=== PATIENT | male | born 1955 | race Caucasian/White ===

== ENCOUNTER 2018-03-11 13:47 | Observation (INO) | payer BC ==
[~2018-03-11] VITALS: Ht 172.7 cm; Wt 115.3 kg
[2018-03-11] MEDS ORDERED: ALBU2.5V8 INH (14:19)
[2018-03-11] MEDS ORDERED: LOSA100T14 PO (14:19)
[2018-03-11] MEDS ORDERED: CYCL10TA2 PO (14:19)
[2018-03-11] MEDS ORDERED: PRAV80TA2 PO (14:19)
[2018-03-11] MEDS ORDERED: CARB100O7 PO (14:19)
[2018-03-11] MEDS ORDERED: FAMO40TA4 PO (14:19)
[2018-03-11] MEDS ORDERED: HYDR-2761 PO (14:19)
[2018-03-11] MEDS ORDERED: IV RINGERS,LACTATED 1000ML 1,000 ML IV SCH (14:42)
--- NOTE | 2018-03-11 14:43 | EKG ---
[facility] [address] [place] [address] Test Date: 2018-03-11 Test Time: 14:51:27 Pat Name: ISABEL LYNNE Department: Room: Gender: M Nuclear Medicine Technician: TIO : 1955 Requested By: MELLO CALDWELL Order Number: [id number] Reading MD: Jose M Thomason MD Measurements Intervals [place] Rate: 66 P: 38 IN: 172 QRS: -15 QRSD: 90 T: 37 QT: 388 QTc: 408 Interpretive Statements SINUS RHYTHM CONSIDER PRIOR SEPTAL INFARCT Electronically Signed On 03-15-2018 8:37:48 ANALYTICAL DATA SCIENTIST by Jose M Thomason MD
[2018-03-11] MEDS ORDERED: MIDAZOLAM HCL/PF 2 MG/2 ML VIAL. IV PRN (14:45)
[2018-03-11] MEDS ORDERED: LIDOCAINE 1% PF 2 ML VIAL. ID PRN (14:45)
[2018-03-11] MEDS ORDERED: fentaNYL PF VIAL 100 MCG/2 ML VIAL IV PRN ×2 (14:45)
[2018-03-11] MEDS ORDERED: PROPOFOL 40 ML IV ONE (14:59)
[2018-03-11 15:18] LABS: CALCIUM 8.9 mg/dL (8.5-10.1); CREATININE 1.1 mg/dL (0.7-1.3); GFR 68.1; POTASSIUM 4.8 mmol/L (3.5-5.1)
[2018-03-11] MEDS ORDERED: PROPOFOL 60 ML IV ONE (15:25)
--- NOTE | 2018-03-11 16:03 | PDOC2 ---
CARDIAC CONSULT DATE OF CONSULT Date of Consult DATE: 03/11/18 TIME: 15:49 REASON FOR CONSULT Reason for Consult: Chest pain REFERRING PHYSICIAN Referring Physician: Ben SOURCE Source: Chart review, Patient HISTORY OF PRESENT ILLNESS HISTORY OF PRESENT ILLNESS This is a pleasant 62 yo male admitted for planned colonoscopy and EGD. Pt reports that he has been having RUQ pain and hx of abdominal abscess and needing GI screening. He successfully finished his bowel prep overnight without difficulty. This morning he did have a brief moment of mid chest pressure lasting about <2minutes with no recurrence. He does have hx of CAD with x1 stent placed in 2009 and sees [facility] formula clerk whom he could not remember the name but saw him 12/2016. 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 There has been no changes to his activity tolerance and denies any jaw or arm pain. Aside from his nausea associated with his bowel prep there has been no issues with vomiting , palpitations, dizzy spells, or any episodes of unexplained diaphoresis. He has not been having any chest pain prior to this morning event which was not associated with any other symptoms. PAST MEDICAL HISTORY Cardiovascular: CAD, HTN, Hyperlipidemia CENTRAL NERVOUS SYSTEM: Seizure Heme/Onc: Cancer (right renal CA; CLL) PAST SURGICAL HISTORY Past Surgical History: Cholecystectomy, Hernia Repair, Other (lower back surgery; right nephrectomy; PCI/stent x1 in 2009) FAMILY HISTORY Family History noncontributory to CV Family History: Diabetes (mother/sister) SOCIAL HISTORY Smoke: No ALCOHOL: none Drugs: None Lives: Alone CURRENT MEDICATIONS CURRENT MEDICATIONS Current Medications Medications (Trade) Dose Ordered Sig/Brook Route PRN Reason Start Time Stop Time Status Last Admin Dose Admin Ringer's Solution 1,000 ml @ 125 mls/hr Q8H IV 03/11/18 14:42 03/12/18 02:41 03/11/18 14:45 ALLERGIES ALLERGIES: Coded Allergies: No Known Drug Allergies (Unverified , 03/11/18) ROS Review of System 14 point ROS evaluated with pertinent positives noted per HPI PHYSICAL EXAM General: Alert, Oriented X3, Cooperative, No acute distress HEENT: Atraumatic, Mucous membr. moist/pink Lungs: Clear to auscultation, Normal air movement Heart: Regular rate (SR), Normal S1, Normal S2, No murmurs Abdomen: Soft, No tenderness, Other (truncal obesity with mild ventral hernia) Extremities: No cyanosis, No edema Skin: No breakdown, No significant lesion Neuro: Normal speech, Sensation intact Psych/Mental Status: Mental status NL, Mood NL MUSCULOSKELETAL: Osteoarthritic changes both hands VITALS VITALS Vital Signs Date Time Temp Pulse Resp B/P (MAP) Pulse Ox O2 Delivery O2 Flow Rate FiO2 03/11/18 14:29 97.9 74 20 95 97.9 LABS Lab: Laboratory Tests Test 03/11/18 14:45 Sodium Level 137 mmol/L (136-145) Potassium Level 4.8 mmol/L (3.5-5.1) Chloride Level 103 mmol/L (98-107) Carbon Dioxide Level 20 mmol/L (21-32) Anion Gap 14 (6-14) Blood Urea Nitrogen 13 mg/dL (8-26) Creatinine 1.1 mg/dL (0.7-1.3) Estimated GFR (Cockcroft-Gault) 68.1 Glucose Level 73 mg/dL (70-99) Calcium Level 8.9 mg/dL (8.5-10.1) Troponin I Quantitative 0.050 ng/mL (0.000-0.055) ASSESSMENT/PLAN ASSESSMENT/PLAN 1. Atypical CP: noncardiac, suspect GI with post bowel prep. Trop nml. EKG SR without acute changes with good functional capacity 2. CAD: PCI/stent in 2009, clinically stable. 3. HTN: mildly elevated as he has not taken his cozar this am due to being NPO 4. HLP Recommendations 1. Resume home cardiac meds including ASA/losartan once PO is tolerated pending EGD and colonoscopy today 2. Advised pt to follow up with outpt formula clerk at [facility] once discharged. ODALIS FERNANDEZ APRN Mar 11, 2018 16:03
[2018-03-11] MEDS ORDERED: PROPOFOL 80 ML IV ONE (16:10)
[2018-03-11] MEDS ORDERED: CARB200T PO ×2 (18:18)
[2018-03-11] MEDS ORDERED: HYDROcodone/APAP 5/325MG 1 TAB TABLET PO PRN (18:45)
[2018-03-11] MEDS ORDERED: ALBUTEROL SULFATE 2.5 MG/3 ML NEBU. NEB PRN (18:45)
[2018-03-11] MEDS ORDERED: NON FORMULARY ITEM (Albuterol Sulfate (Proair Hfa Inhaler) 1 PUFF) INH PRN (18:45)
[2018-03-11 18:52] VITALS: BP 158/69
[2018-03-11] MEDS ORDERED: ATORVASTATIN CALCIUM 20 MG TABLET PO SCH (21:00)
[2018-03-11] MEDS ORDERED: carBAMazepine 200 MG TABLET PO SCH (21:00)
[2018-03-11] MEDS: FAMOTIDINE 20 MG TABLET. PO SCH (21:14)
[2018-03-11] MEDS: CYCLOBENZAPRINE 10 MG TABLET. PO SCH (21:15)
[2018-03-11] MEDS ORDERED: ASPI-630 PO (21:19)
[2018-03-11] MEDS ORDERED: PSYL1CAP4 PO (21:22)
[2018-03-11 22:00] VITALS: BP 129/58
[2018-03-11] MEDS ORDERED: PSYLLIUM HUSK (SUGAR FREE) 1 PKT PACKET PO PRN (22:00)
--- NOTE | 2018-03-11 23:23 | HP ---
ADMIT DATE: 03/11/2018 CHIEF COMPLAINT: Chest pain. HISTORY OF PRESENT ILLNESS: The patient is a pleasant middle-aged white male who presented with chest pain. He apparently was getting an EGD and colonoscopy that was planned as an outpatient, but then they sent him to the hospital to go to do it close by the hospital is what he said. Afterwards, he has been having some chest pain, rates it at 6/10 with some associated nausea. It has been coming on for a couple of days, but it got worse today. He does have a history of coronary artery disease with 1 previous stent with 1 previous stent states that moving makes it worse and still makes it better. Describes as agonizing. I discussed the case with the gastrointestinal specialist's nurse. They want to go ahead and transfer the patient to me in admitting and I am fine with that. We admitted him. 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 PAST MEDICAL HISTORY: Coronary artery disease, hypertension, hyperlipidemia, renal cell carcinoma, seizures, cholecystectomy, hernia repair, low back surgery, right nephrectomy, cardiac stents. ALLERGIES: None. FAMILY HISTORY: Coronary artery disease. SOCIAL HISTORY: He does not drink, smoke or take drugs. MEDICATIONS: Reviewed, please refer to the MRAD. He is on aspirin and statin and [id number] meds. REVIEW OF SYSTEMS: GENERAL: No history of weight change, weakness or fevers. SKIN: No bruising, hair changes or rashes. EYES: No blurred, double or loss of vision. NOSE AND THROAT: No history of nosebleeds, hoarseness or sore throat. HEART: He complains of chest pain. LUNGS: Denies cough, hemoptysis, wheezing or shortness of breath. GASTROINTESTINAL: Denies changes in appetite, nausea, vomiting, diarrhea or constipation. GENITOURINARY: No history of frequency, urgency, hesitancy or nocturia. NEUROLOGIC: Denies history of numbness, tingling, tremor or weakness. PSYCHIATRIC: No history of panic, anxiety or depression. ENDOCRINE: No history of heat or cold intolerance, polyuria or polydipsia. EXTREMITIES: Denies muscle weakness, joint pain, pain on walking or stiffness. PHYSICAL EXAMINATION: VITAL SIGNS: Temperature afebrile, pulse 74, respirations 20, blood pressure 133/67. GENERAL: He is alert, cooperative. HEART: Normal S1, S2, without any murmurs. LUNGS: Clear to auscultation. ABDOMEN: Soft, little obese. EXTREMITIES: Trace edema. SKIN: No rashes. ENDOCRINE: No thyromegaly. LYMPHATICS: No cervical nodes. HEMATOPOIETIC: No bruising. LABORATORY DATA: Sodium is 137, potassium 4.8, creatinine is 1.1. Troponin is 0.05. EKG shows sinus rhythm. ASSESSMENT AND PLAN: Chest pain, rule out recurrent coronary artery disease. The patient has been admitted. We will check serial enzymes, serial EKGs, cardiac monitoring. Consult Cardiology. Daily aspirin, home meds, PT, OT. MARYURI DUKE DO DR: MANISHA/mike JOB#: [id number] / [id number]
[2018-03-12 03:09] VITALS: BP 138/65
[2018-03-12 07:00] VITALS: BP 140/72
[2018-03-12 07:24] LABS: BASO # 0.2 x10^3/uL (0.0-0.2); BASO % 0 % (0-3); EOS # 0.3 x10^3/uL (0.0-0.7); EOS % 1 % (0-3); HEMATOCRIT 41.2 % (39.0-53.0); HEMOGLOBIN 13.9 g/dL (13.0-17.5); LYMPH # 35.6 x10^3/uL (1.0-4.8); LYMPH % 85 % (24-48); MEAN CORPUSCULAR HEMOGLOBIN 32 pg (25-35); MEAN CORPUSCULAR HGB CONC 34 g/dL (31-37); MEAN CORPUSCULAR VOLUME 95 fL (79-100); MONO % 2 % (0-9); NEUT # 4.9 x10^3uL (1.8-7.7); NEUT % 12 % (31-73); PLATELET COUNT 135 x10^3/uL (140-400); RED BLOOD COUNT 4.36 x10^6/uL (4.30-5.70); RED CELL DISTRIBUTION WIDTH 13.6 % (11.5-14.5)
[2018-03-12 07:45] LABS: ALBUMIN 3.4 g/dL (3.4-5.0); DIRECT BILIRUBIN 0.1 mg/dL (0.0-0.2); TOTAL BILIRUBIN 0.2 mg/dL (0.2-1.0); TOTAL PROTEIN 6.1 g/dL (6.4-8.2)
[2018-03-12 07:46] LABS: CHOLESTEROL/HDL RATIO 3.3
--- NOTE | 2018-03-12 07:48 | EKG ---
[facility] [address] [place] [address] Test Date: 2018-03-12 Test Time: 07:45:55 Pat Name: ISABEL LYNNE Department: Room: 269 1 Gender: M Vp Genetic: MARK : 1955 Requested By: SHAR REHMAN Order Number: [id number] Reading MD: Jd Whiteside Measurements Intervals [place] Rate: 58 P: 0 OK: 176 QRS: 0 QRSD: 90 T: -11 QT: 416 QTc: 408 Interpretive Statements SINUS RHYTHM LEFTWARD AXIS QRS(T) CONTOUR ABNORMALITY CONSIDER ANTEROSEPTAL MYOCARDIAL DAMAGE T ABNORMALITY IN INFERIOR LEADS ABNORMAL ECG RI6.01 No previous ECG available for comparison Electronically Signed On 03-15-2018 8:45:10 BET TAKER by Jd Whiteside
[2018-03-12] MEDS ORDERED: carBAMazepine 200 MG TABLET PO SCH (08:00)
[2018-03-12] MEDS: FAMOTIDINE 20 MG TABLET. PO SCH (08:24)
[2018-03-12 08:25] VITALS: BP 140/72
[2018-03-12] MEDS: CYCLOBENZAPRINE 10 MG TABLET. PO SCH (09:00)
[2018-03-12] MEDS ORDERED: ASPIRIN CHEWABLE 81 MG TABLET. PO SCH (09:00)
[2018-03-12] MEDS ORDERED: LOSARTAN POTASSIUM 50 MG TABLET. PO SCH (09:00)
--- NOTE | 2018-03-12 09:04 | PDOC ---
CARDIO Progress Notes Date and Time Date of Service 03/12/2018 Time of Evaluation 0900 Subjective Subjective: No Chest Pain, No shortness of breath, No Palpitations Vitals Vitals Vital Signs Date Time Temp Pulse Resp B/P (MAP) Pulse Ox O2 Delivery O2 Flow Rate FiO2 03/12/18 08:25 60 140/72 03/12/18 07:30 Room Air 03/12/18 07:00 97.8 16 95 97.8 Weight Weight [ ] Input and Output Intake and Output Intake and Output 03/12/18 07:00 Intake Total 580 ml Output Total 375 ml Balance 205 ml Intake Oral 580 ml Output Urine Total 375 ml # Voids 1 Laboratory Labs Laboratory Tests Test 03/11/18 14:45 03/11/18 21:05 03/12/18 06:50 Sodium Level 137 mmol/L (136-145) Potassium Level 4.8 mmol/L (3.5-5.1) Chloride Level 103 mmol/L (98-107) Carbon Dioxide Level 20 mmol/L (21-32) Anion Gap 14 (6-14) Blood Urea Nitrogen 13 mg/dL (8-26) Creatinine 1.1 mg/dL (0.7-1.3) Estimated GFR (Cockcroft-Gault) 68.1 Glucose Level 73 mg/dL (70-99) Calcium Level 8.9 mg/dL (8.5-10.1) Troponin I Quantitative 0.050 ng/mL (0.000-0.055) 0.052 ng/mL (0.000-0.055) 0.047 ng/mL (0.000-0.055) White Blood Count 42.0 x10^3/uL (4.0-11.0) Red Blood Count 4.36 x10^6/uL (4.30-5.70) Hemoglobin 13.9 g/dL (13.0-17.5) Hematocrit 41.2 % (39.0-53.0) Mean Corpuscular Volume 95 fL (79-100) Mean Corpuscular Hemoglobin 32 pg (25-35) Mean Corpuscular Hemoglobin Concent 34 g/dL (31-37) Red Cell Distribution Width 13.6 % (11.5-14.5) Platelet Count 135 x10^3/uL (140-400) Neutrophils (%) (Auto) 12 % (31-73) Lymphocytes (%) (Auto) 85 % (24-48) Monocytes (%) (Auto) 2 % (0-9) Eosinophils (%) (Auto) 1 % (0-3) Basophils (%) (Auto) 0 % (0-3) Neutrophils # (Auto) 4.9 x10^3uL (1.8-7.7) Lymphocytes # (Auto) 35.6 x10^3/uL (1.0-4.8) Monocytes # (Auto) 1.0 x10^3/uL (0.0-1.1) Eosinophils # (Auto) 0.3 x10^3/uL (0.0-0.7) Basophils # (Auto) 0.2 x10^3/uL (0.0-0.2) Total Bilirubin 0.2 mg/dL (0.2-1.0) Direct Bilirubin 0.1 mg/dL (0.0-0.2) Aspartate Amino Transf (AST/SGOT) 22 U/L (15-37) Alanine Aminotransferase (ALT/SGPT) 43 U/L (16-63) Alkaline Phosphatase 162 U/L (46-116) Total Protein 6.1 g/dL (6.4-8.2) Albumin 3.4 g/dL (3.4-5.0) Triglycerides Level 130 mg/dL (0-150) Cholesterol Level 127 mg/dL (0-200) LDL Cholesterol, Calculated 62 mg/dL (0-100) VLDL Cholesterol, Calculated 26 mg/dL (0-40) Non-HDL Cholesterol Calculated 88 mg/dL (0-129) HDL Cholesterol 39 mg/dL (40-60) Cholesterol/HDL Ratio 3.3 Physical Exam HEENT: Neck Supple W Full Motion Chest: Symmetric LUNGS: Clear to Auscultation Heart: S1S2, RRR (SR, no significant ectopies overnight) Abdomen: Soft N/T Extremities: No Calf Tenderness Neurology: alert, oriented, follow commands Assessment Assessment 1. Atypical CP: noncardiac, suspect GI with post bowel prep. Trop nml. EKG SR without acute changes with good functional capacity 2. CAD: PCI/stent in 2009, clinically stable. 3. HTN: controlled 4. HLP Recommendations 1. Tolerated EGD and colonoscopy. Resume secondary prevention measures 2. Follow up with outpt site manager at [facility] once discharged. August DC to home ODALIS FERNANDEZ APRN Mar 12, 2018 09:04
--- NOTE | 2018-03-12 09:37 | PDOC2 ---
CONSULT Date of Consult Date of Consult DATE: 03/12/18 TIME: 09:30 Reason for consultation: CLL Consult: Hematology oncology, Dr. Mino Fields History of present illness: He has a history of chest pain, atypical, acute onset, mild, noted yesterday, worsened after bowel prep, he ended up getting this EGD and colonoscopy, he tells me 1 colon polyp was found, it was associated with nausea, and it has since proved to resolution with time. Also he has a history of CLL, white count was recently 45,000 decreased from 48,000 at his February follow-up with his [place] oncologist and it's 42,000 today. Platelets are slightly low at 135,000. 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 Family history: Coronary artery disease and diabetes Review of systems: Shortness of breath mild comes and goes, uses an inhaler, with some occasional wheezing, slight headache, chest pain resolved, otherwise 10 point review of systems negative Physical exam: Vitals reviewed Gen.: Well-nourished and well-developed in no acute distress HEENT: mucous membranes moist, head normocephalic atraumatic Neck: Supple, no lymphadenopathy Lymph nodes: No palpable lymphadenopathy neck or axilla Lungs: Breathing comfortably on room air, no evidence of respiratory distress Heart: Regular rate and rhythm Abdomen: Soft, nontender, nondistended, obese Extremities: No cyanosis or edema Skin: No obvious rashes or skin breakdown Neuro: Alert and oriented 3 Psych: Normal mood and affect Lab reviewed: White count 42,000, hemoglobin 13.9, platelets 135, creatinine 1.1 , lymphocyte count 35,000 Rads reviewed: None available Case discussed with: Pt and his nurse, records reviewed in [employer] and [facility], including labs and radiology, please see note for summary details. Assessment and Plan: Mr. Barrera is a 62-year-old male with CLL stage 0 that has never required treatment, ongoing since at least 2011 with very slow progression , admitted for some chest pain prior to colonoscopy and upper endoscopy, the chest pain has since resolved, he has been evaluated by cardiology, his endoscopies were complete and now he is ready for discharge. Nothing concerning regarding his white count and he can continue follow-up with his primary oncologist as needed. No current indications for treatment of his CLL at this time. CLL: Follow-up primary oncologist Chest pain: Resolved Colon polyp: He can follow-up with GI regarding biopsies of his reported polypectomy yesterday Disposition: To home Thank you kindly for this consultation, and please do not hesitate to call with further questions. Past Medical History Cardiovascular: CAD, HTN, Hyperlipidemia CENTRAL NERVOUS SYSTEM: Seizure Heme/Onc: Cancer (right renal CA; CLL) Past Surgical History Past Surgical History: Cholecystectomy, Hernia Repair, Other (lower back surgery; right nephrectomy; PCI/stent x1 in 2009) Family History Family History: Diabetes (mother/sister) Social History No ALCOHOL: none Drugs: None Lives: Alone Current Medications Current Medications Current Medications Midazolam HCl (Versed) 2 mg PRN 1X PRN IV PRIOR TO PROCEDURE; Start 03/11/18 at 14:45; Stop 03/12/18 at 14:44 Fentanyl Citrate (Fentanyl 2ml Vial) 25 mcg PRN Q5MIN PRN IV X 2 DOSES FOR PAIN ; Start 03/11/18 at 14:45; Stop 03/12/18 at 14:44 Fentanyl Citrate (Fentanyl 2ml Vial) 50 mcg PRN Q5MIN PRN IV X 2 DOSES FOR PAIN ; Start 03/11/18 at 14:45; Stop 03/12/18 at 14:44 Ringer's Solution 1,000 ml @ 125 mls/hr Q8H IV Last administered on at 14:45; Start 03/11/18 at 14:42; Stop 03/11/18 at 21:02; Status DC Lidocaine HCl (Xylocaine-Mpf 1% 2ml Vial) 2 ml 1X PRN PRN ID IV START; Start 03/11/18 at 14:45; Stop 03/12/18 at 14:44 Propofol 40 ml @ As Directed STK-MED ONCE IV ; Start 03/11/18 at 14:59; Stop 03/11/18 at 15:00; Status DC Propofol 60 ml @ As Directed STK-MED ONCE IV ; Start 03/11/18 at 15:25; Stop 03/11/18 at 15:26; Status DC Propofol 80 ml @ As Directed STK-MED ONCE IV ; Start 03/11/18 at 16:10; Stop 03/11/18 at 16:11; Status DC Carbamazepine (TEGretol) 200 mg DAILYWBKFT PO Last administered on 03/12/18at 08:24; Start 03/12/18 at 08:00 Carbamazepine (TEGretol) 300 mg HS PO Last administered on 03/11/18 21:16; Start 03/11/18 at 21:00 Cyclobenzaprine HCl (Flexeril) 10 mg TID PO Last administered on 03/11/18at 21: 15; Start 03/11/18 at 21:00 Acetaminophen/ Hydrocodone Bitart (Lortab 5/325) 1 tab PRN Q6HRS PRN PO PAIN; Start 03/11/18 at 18:45 Non-Formulary Medication (Albuterol Sulfate (Proair Hfa Inhaler)) 1 puff PRN Q6HRS PRN INH SHORTNESS OF BREATH; Start 03/11/18 at 18:45; Status UNV Famotidine (Pepcid) 20 mg BID PO Last administered on 03/12/18at 08:24; Start 03/11/18 at 21:00 Losartan Potassium (Cozaar) 100 mg DAILY PO Last administered on 03/12/18at 08: 25; Start 03/12/18 at 09:00 Atorvastatin Calcium (Lipitor) 20 mg QHS PO Last administered on 03/11/18at 21: 14; Start 03/11/18 at 21:00 Albuterol Sulfate (Ventolin Neb Soln) 2.5 mg PRN Q6HRS PRN NEB SHORTNESS OF BREATH; Start 03/11/18 at 18:45 Aspirin (Children'S Aspirin) 162 mg DAILY PO ; Start 03/12/18 at 09:00 Psyllium Hydrophilic Mucilloid (Metamucil Fiber Packet) 1 pkt PRN BID PRN PO constipation Last administered on 03/11/18at 22:01; Start 03/11/18 at 22:00 Active Scripts Active Reported Metamucil Plus Calcium Capsule (Psyllium Husk/Ca Carbonate) 1 Each Capsule 1 Each PO PRN BID PRN Aspirin 81 Mg Tab.chew 2 Tab PO DAILY Tegretol (Carbamazepine) 200 Mg Tablet 300 Mg PO HS Tegretol (Carbamazepine) 200 Mg Tablet 200 Mg PO DAILYWBKFT Cyclobenzaprine Hcl 10 Mg Tablet 10 Mg PO TID Carbamazepine 100 Mg/5 Ml Oral.susp 100 Mg PO BID Proair Hfa Inhaler (Albuterol Sulfate) 8.5 Gm Hfa.aer.ad 1 Puff INH PRN Q6HRS PRN Hydrocodone-Apap 5-325 (Hydrocodone Bit/Acetaminophen) 1 Each Tablet 1 Tab PO PRN Q6HRS PRN Losartan Potassium 100 Mg Tablet 100 Mg PO DAILY Pravastatin Sodium 80 Mg Tablet 80 Mg PO DAILY Famotidine 40 Mg Tablet 40 Mg PO HS Allergies Allergies: Coded Allergies: No Known Drug Allergies (Unverified , 03/11/18) Vitals VITALS Vital Signs Date Time Temp Pulse Resp B/P (MAP) Pulse Ox O2 Delivery O2 Flow Rate FiO2 03/12/18 08:25 60 140/72 03/12/18 07:30 Room Air 03/12/18 07:00 97.8 16 95 97.8 Labs Labs Laboratory Tests Test 03/11/18 14:45 03/11/18 21:05 03/12/18 06:50 Sodium Level 137 mmol/L (136-145) Potassium Level 4.8 mmol/L (3.5-5.1) Chloride Level 103 mmol/L (98-107) Carbon Dioxide Level 20 mmol/L (21-32) Anion Gap 14 (6-14) Blood Urea Nitrogen 13 mg/dL (8-26) Creatinine 1.1 mg/dL (0.7-1.3) Estimated GFR (Cockcroft-Gault) 68.1 Glucose Level 73 mg/dL (70-99) Calcium Level 8.9 mg/dL (8.5-10.1) Troponin I Quantitative 0.050 ng/mL (0.000-0.055) 0.052 ng/mL (0.000-0.055) 0.047 ng/mL (0.000-0.055) White Blood Count 42.0 x10^3/uL (4.0-11.0) Red Blood Count 4.36 x10^6/uL (4.30-5.70) Hemoglobin 13.9 g/dL (13.0-17.5) Hematocrit 41.2 % (39.0-53.0) Mean Corpuscular Volume 95 fL (79-100) Mean Corpuscular Hemoglobin 32 pg (25-35) Mean Corpuscular Hemoglobin Concent 34 g/dL (31-37) Red Cell Distribution Width 13.6 % (11.5-14.5) Platelet Count 135 x10^3/uL (140-400) Neutrophils (%) (Auto) 12 % (31-73) Lymphocytes (%) (Auto) 85 % (24-48) Monocytes (%) (Auto) 2 % (0-9) Eosinophils (%) (Auto) 1 % (0-3) Basophils (%) (Auto) 0 % (0-3) Neutrophils # (Auto) 4.9 x10^3uL (1.8-7.7) Lymphocytes # (Auto) 35.6 x10^3/uL (1.0-4.8) Monocytes # (Auto) 1.0 x10^3/uL (0.0-1.1) Eosinophils # (Auto) 0.3 x10^3/uL (0.0-0.7) Basophils # (Auto) 0.2 x10^3/uL (0.0-0.2) Total Bilirubin 0.2 mg/dL (0.2-1.0) Direct Bilirubin 0.1 mg/dL (0.0-0.2) Aspartate Amino Transf (AST/SGOT) 22 U/L (15-37) Alanine Aminotransferase (ALT/SGPT) 43 U/L (16-63) Alkaline Phosphatase 162 U/L (46-116) Total Protein 6.1 g/dL (6.4-8.2) Albumin 3.4 g/dL (3.4-5.0) Triglycerides Level 130 mg/dL (0-150) Cholesterol Level 127 mg/dL (0-200) LDL Cholesterol, Calculated 62 mg/dL (0-100) VLDL Cholesterol, Calculated 26 mg/dL (0-40) Non-HDL Cholesterol Calculated 88 mg/dL (0-129) HDL Cholesterol 39 mg/dL (40-60) Cholesterol/HDL Ratio 3.3 Laboratory Tests Test 03/11/18 14:45 03/11/18 21:05 03/12/18 06:50 Sodium Level 137 mmol/L (136-145) Potassium Level 4.8 mmol/L (3.5-5.1) Chloride Level 103 mmol/L (98-107) Carbon Dioxide Level 20 mmol/L (21-32) Anion Gap 14 (6-14) Blood Urea Nitrogen 13 mg/dL (8-26) Creatinine 1.1 mg/dL (0.7-1.3) Estimated GFR (Cockcroft-Gault) 68.1 Glucose Level 73 mg/dL (70-99) Calcium Level 8.9 mg/dL (8.5-10.1) Troponin I Quantitative 0.050 ng/mL (0.000-0.055) 0.052 ng/mL (0.000-0.055) 0.047 ng/mL (0.000-0.055) White Blood Count 42.0 x10^3/uL (4.0-11.0) Red Blood Count 4.36 x10^6/uL (4.30-5.70) Hemoglobin 13.9 g/dL (13.0-17.5) Hematocrit 41.2 % (39.0-53.0) Mean Corpuscular Volume 95 fL (79-100) Mean Corpuscular Hemoglobin 32 pg (25-35) Mean Corpuscular Hemoglobin Concent 34 g/dL (31-37) Red Cell Distribution Width 13.6 % (11.5-14.5) Platelet Count 135 x10^3/uL (140-400) Neutrophils (%) (Auto) 12 % (31-73) Lymphocytes (%) (Auto) 85 % (24-48) Monocytes (%) (Auto) 2 % (0-9) Eosinophils (%) (Auto) 1 % (0-3) Basophils (%) (Auto) 0 % (0-3) Neutrophils # (Auto) 4.9 x10^3uL (1.8-7.7) Lymphocytes # (Auto) 35.6 x10^3/uL (1.0-4.8) Monocytes # (Auto) 1.0 x10^3/uL (0.0-1.1) Eosinophils # (Auto) 0.3 x10^3/uL (0.0-0.7) Basophils # (Auto) 0.2 x10^3/uL (0.0-0.2) Total Bilirubin 0.2 mg/dL (0.2-1.0) Direct Bilirubin 0.1 mg/dL (0.0-0.2) Aspartate Amino Transf (AST/SGOT) 22 U/L (15-37) Alanine Aminotransferase (ALT/SGPT) 43 U/L (16-63) Alkaline Phosphatase 162 U/L (46-116) Total Protein 6.1 g/dL (6.4-8.2) Albumin 3.4 g/dL (3.4-5.0) Triglycerides Level 130 mg/dL (0-150) Cholesterol Level 127 mg/dL (0-200) LDL Cholesterol, Calculated 62 mg/dL (0-100) VLDL Cholesterol, Calculated 26 mg/dL (0-40) Non-HDL Cholesterol Calculated 88 mg/dL (0-129) HDL Cholesterol 39 mg/dL (40-60) Cholesterol/HDL Ratio 3.3 MINO FIELDS MD Mar 12, 2018 09:37
--- NOTE | 2018-03-12 10:06 | NUR ---
Pt alert and oriented x4 throughout shift. Pt denies chest pain throughout shift. Pt troponins peaked and trending down. No EKG changes. Cardiology and oncology cleared for D/c with no med changes. 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 Pt tolerating PO intake. Pt educated on discharge paperwork. Pt denied questions. Pt tolerated IV removal, tip intact, pressure applied, bleeding stopped. Pt wheeled out by [facility] with all belongings.
--- NOTE | 2018-03-12 11:24 | PDOC ---
PROGRESS NOTES Chief Complaint Chief Complaint chest pain History of Present Illness History of Present Illness 62 y/o male was admitted after a scheduled colonoscopy and EGD for chest pain. He has now returned to baseline and ready for discharge. Vitals Vitals Vital Signs Date Time Temp Pulse Resp B/P (MAP) Pulse Ox O2 Delivery O2 Flow Rate FiO2 03/12/18 08:25 60 140/72 03/12/18 07:30 Room Air 03/12/18 07:00 97.8 16 95 97.8 Physical Exam General: Alert, Oriented X3, Cooperative, No acute distress Heart: Regular rate (SR), Normal S1, Normal S2, No murmurs Abdomen: Soft, No tenderness, Other (truncal obesity with mild ventral hernia) Extremities: No cyanosis, No edema Skin: No breakdown, No significant lesion Labs LABS Laboratory Tests Test 03/11/18 14:45 03/11/18 21:05 03/12/18 06:50 Sodium Level 137 mmol/L (136-145) Potassium Level 4.8 mmol/L (3.5-5.1) Chloride Level 103 mmol/L (98-107) Carbon Dioxide Level 20 mmol/L (21-32) Anion Gap 14 (6-14) Blood Urea Nitrogen 13 mg/dL (8-26) Creatinine 1.1 mg/dL (0.7-1.3) Estimated GFR (Cockcroft-Gault) 68.1 Glucose Level 73 mg/dL (70-99) Calcium Level 8.9 mg/dL (8.5-10.1) Troponin I Quantitative 0.050 ng/mL (0.000-0.055) 0.052 ng/mL (0.000-0.055) 0.047 ng/mL (0.000-0.055) White Blood Count 42.0 x10^3/uL (4.0-11.0) Red Blood Count 4.36 x10^6/uL (4.30-5.70) Hemoglobin 13.9 g/dL (13.0-17.5) Hematocrit 41.2 % (39.0-53.0) Mean Corpuscular Volume 95 fL (79-100) Mean Corpuscular Hemoglobin 32 pg (25-35) Mean Corpuscular Hemoglobin Concent 34 g/dL (31-37) Red Cell Distribution Width 13.6 % (11.5-14.5) Platelet Count 135 x10^3/uL (140-400) Neutrophils (%) (Auto) 12 % (31-73) Lymphocytes (%) (Auto) 85 % (24-48) Monocytes (%) (Auto) 2 % (0-9) Eosinophils (%) (Auto) 1 % (0-3) Basophils (%) (Auto) 0 % (0-3) Neutrophils # (Auto) 4.9 x10^3uL (1.8-7.7) Lymphocytes # (Auto) 35.6 x10^3/uL (1.0-4.8) Monocytes # (Auto) 1.0 x10^3/uL (0.0-1.1) Eosinophils # (Auto) 0.3 x10^3/uL (0.0-0.7) Basophils # (Auto) 0.2 x10^3/uL (0.0-0.2) Total Bilirubin 0.2 mg/dL (0.2-1.0) Direct Bilirubin 0.1 mg/dL (0.0-0.2) Aspartate Amino Transf (AST/SGOT) 22 U/L (15-37) Alanine Aminotransferase (ALT/SGPT) 43 U/L (16-63) Alkaline Phosphatase 162 U/L (46-116) Total Protein 6.1 g/dL (6.4-8.2) Albumin 3.4 g/dL (3.4-5.0) Triglycerides Level 130 mg/dL (0-150) Cholesterol Level 127 mg/dL (0-200) LDL Cholesterol, Calculated 62 mg/dL (0-100) VLDL Cholesterol, Calculated 26 mg/dL (0-40) Non-HDL Cholesterol Calculated 88 mg/dL (0-129) HDL Cholesterol 39 mg/dL (40-60) Cholesterol/HDL Ratio 3.3 Review of Systems Review of Systems General: appears well Heart: chest pain resolved Lung: denies SOA Assessment and Plan Assessmemt and Plan Assessment: 1. Atypical angina, Possible GERD Plan: 1. symptoms resolved, f/u with primary care in 2 weeks 2. PT/OT 3. home meds 4. discharge today 5. appreciate subspecialty input Comment Review of Relevant I have reviewed the following items marilynn (where applicable) has been applied. Labs Laboratory Tests Test 03/11/18 14:45 03/11/18 21:05 03/12/18 06:50 Sodium Level 137 mmol/L (136-145) Potassium Level 4.8 mmol/L (3.5-5.1) Chloride Level 103 mmol/L (98-107) Carbon Dioxide Level 20 mmol/L (21-32) Anion Gap 14 (6-14) Blood Urea Nitrogen 13 mg/dL (8-26) Creatinine 1.1 mg/dL (0.7-1.3) Estimated GFR (Cockcroft-Gault) 68.1 Glucose Level 73 mg/dL (70-99) Calcium Level 8.9 mg/dL (8.5-10.1) Troponin I Quantitative 0.050 ng/mL (0.000-0.055) 0.052 ng/mL (0.000-0.055) 0.047 ng/mL (0.000-0.055) White Blood Count 42.0 x10^3/uL (4.0-11.0) Red Blood Count 4.36 x10^6/uL (4.30-5.70) Hemoglobin 13.9 g/dL (13.0-17.5) Hematocrit 41.2 % (39.0-53.0) Mean Corpuscular Volume 95 fL (79-100) Mean Corpuscular Hemoglobin 32 pg (25-35) Mean Corpuscular Hemoglobin Concent 34 g/dL (31-37) Red Cell Distribution Width 13.6 % (11.5-14.5) Platelet Count 135 x10^3/uL (140-400) Neutrophils (%) (Auto) 12 % (31-73) Lymphocytes (%) (Auto) 85 % (24-48) Monocytes (%) (Auto) 2 % (0-9) Eosinophils (%) (Auto) 1 % (0-3) Basophils (%) (Auto) 0 % (0-3) Neutrophils # (Auto) 4.9 x10^3uL (1.8-7.7) Lymphocytes # (Auto) 35.6 x10^3/uL (1.0-4.8) Monocytes # (Auto) 1.0 x10^3/uL (0.0-1.1) Eosinophils # (Auto) 0.3 x10^3/uL (0.0-0.7) Basophils # (Auto) 0.2 x10^3/uL (0.0-0.2) Total Bilirubin 0.2 mg/dL (0.2-1.0) Direct Bilirubin 0.1 mg/dL (0.0-0.2) Aspartate Amino Transf (AST/SGOT) 22 U/L (15-37) Alanine Aminotransferase (ALT/SGPT) 43 U/L (16-63) Alkaline Phosphatase 162 U/L (46-116) Total Protein 6.1 g/dL (6.4-8.2) Albumin 3.4 g/dL (3.4-5.0) Triglycerides Level 130 mg/dL (0-150) Cholesterol Level 127 mg/dL (0-200) LDL Cholesterol, Calculated 62 mg/dL (0-100) VLDL Cholesterol, Calculated 26 mg/dL (0-40) Non-HDL Cholesterol Calculated 88 mg/dL (0-129) HDL Cholesterol 39 mg/dL (40-60) Cholesterol/HDL Ratio 3.3 Laboratory Tests Test 03/11/18 14:45 03/11/18 21:05 03/12/18 06:50 Sodium Level 137 mmol/L (136-145) Potassium Level 4.8 mmol/L (3.5-5.1) Chloride Level 103 mmol/L (98-107) Carbon Dioxide Level 20 mmol/L (21-32) Anion Gap 14 (6-14) Blood Urea Nitrogen 13 mg/dL (8-26) Creatinine 1.1 mg/dL (0.7-1.3) Estimated GFR (Cockcroft-Gault) 68.1 Glucose Level 73 mg/dL (70-99) Calcium Level 8.9 mg/dL (8.5-10.1) Troponin I Quantitative 0.050 ng/mL (0.000-0.055) 0.052 ng/mL (0.000-0.055) 0.047 ng/mL (0.000-0.055) White Blood Count 42.0 x10^3/uL (4.0-11.0) Red Blood Count 4.36 x10^6/uL (4.30-5.70) Hemoglobin 13.9 g/dL (13.0-17.5) Hematocrit 41.2 % (39.0-53.0) Mean Corpuscular Volume 95 fL (79-100) Mean Corpuscular Hemoglobin 32 pg (25-35) Mean Corpuscular Hemoglobin Concent 34 g/dL (31-37) Red Cell Distribution Width 13.6 % (11.5-14.5) Platelet Count 135 x10^3/uL (140-400) Neutrophils (%) (Auto) 12 % (31-73) Lymphocytes (%) (Auto) 85 % (24-48) Monocytes (%) (Auto) 2 % (0-9) Eosinophils (%) (Auto) 1 % (0-3) Basophils (%) (Auto) 0 % (0-3) Neutrophils # (Auto) 4.9 x10^3uL (1.8-7.7) Lymphocytes # (Auto) 35.6 x10^3/uL (1.0-4.8) Monocytes # (Auto) 1.0 x10^3/uL (0.0-1.1) Eosinophils # (Auto) 0.3 x10^3/uL (0.0-0.7) Basophils # (Auto) 0.2 x10^3/uL (0.0-0.2) Total Bilirubin 0.2 mg/dL (0.2-1.0) Direct Bilirubin 0.1 mg/dL (0.0-0.2) Aspartate Amino Transf (AST/SGOT) 22 U/L (15-37) Alanine Aminotransferase (ALT/SGPT) 43 U/L (16-63) Alkaline Phosphatase 162 U/L (46-116) Total Protein 6.1 g/dL (6.4-8.2) Albumin 3.4 g/dL (3.4-5.0) Triglycerides Level 130 mg/dL (0-150) Cholesterol Level 127 mg/dL (0-200) LDL Cholesterol, Calculated 62 mg/dL (0-100) VLDL Cholesterol, Calculated 26 mg/dL (0-40) Non-HDL Cholesterol Calculated 88 mg/dL (0-129) HDL Cholesterol 39 mg/dL (40-60) Cholesterol/HDL Ratio 3.3 Medications Current Medications Midazolam HCl (Versed) 2 mg PRN 1X PRN IV PRIOR TO PROCEDURE; Start 03/11/18 at 14:45; Stop 03/12/18 at 11:10; Status DC Fentanyl Citrate (Fentanyl 2ml Vial) 25 mcg PRN Q5MIN PRN IV X 2 DOSES FOR PAIN ; Start 03/11/18 at 14:45; Stop 03/12/18 at 11:10; Status DC Fentanyl Citrate (Fentanyl 2ml Vial) 50 mcg PRN Q5MIN PRN IV X 2 DOSES FOR PAIN ; Start 03/11/18 at 14:45; Stop 03/12/18 at 11:10; Status DC Ringer's Solution 1,000 ml @ 125 mls/hr Q8H IV Last administered on at 14:45; Start 03/11/18 at 14:42; Stop 03/11/18 at 21:02; Status DC Lidocaine HCl (Xylocaine-Mpf 1% 2ml Vial) 2 ml 1X PRN PRN ID IV START; Start 03/11/18 at 14:45; Stop 03/12/18 at 11:10; Status DC Propofol 40 ml @ As Directed STK-MED ONCE IV ; Start 03/11/18 at 14:59; Stop 03/11/18 at 15:00; Status DC Propofol 60 ml @ As Directed STK-MED ONCE IV ; Start 03/11/18 at 15:25; Stop 03/11/18 at 15:26; Status DC Propofol 80 ml @ As Directed STK-MED ONCE IV ; Start 03/11/18 at 16:10; Stop 03/11/18 at 16:11; Status DC Carbamazepine (TEGretol) 200 mg DAILYWBKFT PO Last administered on 03/12/18at 08:24; Start 03/12/18 at 08:00; Stop 03/12/18 at 11:10; Status DC Carbamazepine (TEGretol) 300 mg HS PO Last administered on 03/11/18at 21:16; Start 03/11/18 at 21:00; Stop 03/12/18 at 11:10; Status DC Cyclobenzaprine HCl (Flexeril) 10 mg TID PO Last administered on 03/11/18at 21: 15; Start 03/11/18 at 21:00; Stop 03/12/18 at 11:10; Status DC Acetaminophen/ Hydrocodone Bitart (Lortab 5/325) 1 tab PRN Q6HRS PRN PO PAIN; Start 03/11/18 at 18:45; Stop 03/12/18 at 11:10; Status DC Non-Formulary Medication (Albuterol Sulfate (Proair Hfa Inhaler)) 1 puff PRN Q6HRS PRN INH SHORTNESS OF BREATH; Start 03/11/18 at 18:45; Status UNV Famotidine (Pepcid) 20 mg BID PO Last administered on 03/12/18at 08:24; Start 03/11/18 at 21:00; Stop 03/12/18 at 11:10; Status DC Losartan Potassium (Cozaar) 100 mg DAILY PO Last administered on 03/12/18at 08: 25; Start 03/12/18 at 09:00; Stop 03/12/18 at 11:10; Status DC Atorvastatin Calcium (Lipitor) 20 mg QHS PO Last administered on 03/11/18at 21: 14; Start 03/11/18 at 21:00; Stop 03/12/18 at 11:10; Status DC Albuterol Sulfate (Ventolin Neb Soln) 2.5 mg PRN Q6HRS PRN NEB SHORTNESS OF BREATH; Start 03/11/18 at 18:45; Stop 03/12/18 at 11:10; Status DC Aspirin (Children'S Aspirin) 162 mg DAILY PO ; Start 03/12/18 at 09:00; Stop 03/12/18 at 11:10; Status DC Psyllium Hydrophilic Mucilloid (Metamucil Fiber Packet) 1 pkt PRN BID PRN PO constipation Last administered on 03/11/18at 22:01; Start 03/11/18 at 22:00; Stop 03/12/18 at 11:10; Status DC Active Scripts Active Reported Metamucil Plus Calcium Capsule (Psyllium Husk/Ca Carbonate) 1 Each Capsule 1 Each PO PRN BID PRN Aspirin 81 Mg Tab.chew 2 Tab PO DAILY Tegretol (Carbamazepine) 200 Mg Tablet 300 Mg PO HS Tegretol (Carbamazepine) 200 Mg Tablet 200 Mg PO DAILYWBKFT Cyclobenzaprine Hcl 10 Mg Tablet 10 Mg PO TID Carbamazepine 100 Mg/5 Ml Oral.susp 100 Mg PO BID Proair Hfa Inhaler (Albuterol Sulfate) 8.5 Gm Hfa.aer.ad 1 Puff INH PRN Q6HRS PRN Hydrocodone-Apap 5-325 (Hydrocodone Bit/Acetaminophen) 1 Each Tablet 1 Tab PO PRN Q6HRS PRN Losartan Potassium 100 Mg Tablet 100 Mg PO DAILY Pravastatin Sodium 80 Mg Tablet 80 Mg PO DAILY Famotidine 40 Mg Tablet 40 Mg PO HS Vitals/I & O Vital Sign - Last 24 Hours 03/11/18 03/11/18 03/11/18 03/11/18 14:29 16:13 16:28 16:47 Temp 97.9 97.9 97.9 97.9 97.9 97.9 Pulse 74 66 71 58 Resp 20 18 18 16 B/P (MAP) 145/74 145/74 166/77 Pulse Ox 95 93 95 94 O2 Delivery Room Air Room Air Room Air 03/11/18 03/11/18 03/11/18 03/11/18 17:03 18:20 18:52 20:00 Temp 98.1 98.1 Pulse 55 79 Resp 16 16 B/P (MAP) 162/72 158/69 (98) Pulse Ox 97 96 O2 Delivery Room Air Room Air Room Air Room Air 03/11/18 03/12/18 03/12/18 03/12/18 22:00 03:09 07:00 07:30 Temp 97.9 98.2 97.8 97.9 98.2 97.8 Pulse 68 68 60 Resp 16 16 16 B/P (MAP) 129/58 (81) 138/65 (89) 140/72 (94) Pulse Ox 96 94 95 O2 Delivery Room Air Room Air Room Air Room Air 03/12/18 08:25 Pulse 60 B/P (MAP) 140/72 Intake and Output 03/11/18 03/11/18 03/12/18 15:00 23:00 07:00 Intake Total 580 ml Output Total 375 ml Balance -375 ml 580 ml MARYURI DUKE K III DO Mar 12, 2018 11:24
[2018-03-12 14:17] LABS: % MONOS 2 % (0-10); % SEGS 12 % (35-66)
[2018-03-12 14:19] LABS: % LYMPHS 86 % (24-48); PLT ESTIMATE DECREASED (ADEQUATE)
--- NOTE | 2018-03-15 18:07 | PATHOLOGY ---
[facility] Accession Number: [id number] . 01 Material submitted: . PART A: SMALL BOWEL PART B: GASTRIC BX R/O H. PYLORI PART C: POLYPOID LESION BX,ANTRUM PART D: GASTRIC BODY POLYP PART E: GASTROESOPHAGEAL JUNCTION LESION PART F: CECAL POLYPECTOMY . 01 Clinical history: . RUQ pain, CBH B: Rule out H. pylori . 02 Diagnosis: A. Small bowel biopsy: - No significant pathologic abnormalities. . B. Gastric biopsy: - Congestion, foveolar hyperplasia, and mild chronic inflammation consistent with reactive gastropathy. . C. Gastric biopsies, polypoid lesion antrum: - Consistent with hyperplastic polyp, with mild chronic inflammation. . D. Gastric biopsies, gastric body polyp: - Congestion, foveolar hyperplasia, and chronic inflammation consistent with hyperplastic polyp, with focal intestinal metaplasia. . E. Gastroesophageal junction biopsies, gastroesophageal junction lesion: - Segment of hyperplastic squamous esophageal mucosa and segment of gastric mucosa showing mild chronic inflammation. . F. Colon biopsies, cecal polypectomy: - Tubular adenoma. (JPM:giorgio; 03/15/2018) QMS/03/15/2018 . 02 Comment: Sections of the small bowel biopsy reveal segments of duodenal mucosa. Where best oriented, the mucosal villi show no sprue-like changes or significant inflammatory changes. . Sections of the gastric biopsy reveal segments of gastric antral mucosa showing congestion, mild foveolar hyperplasia, and mild chronic inflammation, and a segment of gastric body mucosa showing superficial congestion and slight chronic inflammation. An immunoperoxidase stain for Helicobacter is negative for Helicobacter organisms. The findings are consistent with a mild reactive gastropathy. . Sections of the gastric antral polypoid lesion biopsy show congestion, foveolar hyperplasia, and mild to focal moderate chronic inflammation consistent with hyperplastic polyp. There are no adenomatous changes or evidence of malignancy. . Sections of the gastric body polyp biopsy reveal segments of gastric body mucosa showing superficial congestion and edema, foveolar hyperplasia, and mild to focal moderate chronic inflammation with focal intestinal metaplasia. The findings are consistent with a hyperplastic polyp. There are no adenomatous changes or evidence of malignancy. . Sections of the gastroesophageal junction lesion biopsy reveal a segment of hyperplastic squamous esophageal mucosa and segment of gastric mucosa showing mild chronic inflammation. . Sections of the cecal polypectomy reveal a tubular adenoma showing no high-grade dysplasia or evidence of malignancy. (JPM:giorgio; 03/15/2018) . . Special stain performed: Immunoperoxidase stain for Helicobacter on B1 . 02 Electronically signed: . Simone Hutson MD, Pathologist NPI- [id number] . 01 Gross description: . A. The specimen is received in formalin, labeled "Brown, Stuart, small bowel BX" and consists of 3 fragments of soft healy tissue measuring between 0.1 x 0.1 cm and 0.5 x 0.2 x 0.2 cm. They are entirely submitted in A1. . B. The specimen is received in formalin, labeled "Brown, Stuart, gastric BX" and consists of 4 fragments of soft healy tissue measuring between 0.2 x 0.2 cm and 0.4 x 0.2 x 0.1 cm. They are entirely submitted in B1. . C. The specimen is received in formalin, labeled "Brown, Stuart, polypoid lesion BX antrum" and consists of 5 fragments of soft healy-brown tissue measuring between 0.1 x 0.1 cm and 0.3 x 0.2 x 0.1 cm. They are entirely submitted in C1. . D. The specimen is received in formalin, labeled "Brown, Stuart, gastric body polyp BX" and consists of multiple fragments of soft healy-brown tissue measuring 0.8 x 0.7 x 0.2 cm in aggregate which are entirely submitted in D1. . E. The specimen is received in formalin, labeled "Brown, Stuart, lesion BX gastroesophageal junction" and consists of multiple fragments of soft healy tissue measuring 0.6 x 0.4 x 0.2 cm in aggregate which are entirely submitted in E1. . F. The specimen is received in formalin, labeled "Brown, Stuart, cecal polyp" and consists of 3 polypoid fragments of healy-brown tissue measuring between 0.3 x 0.3 cm and 0.5 x 0.4 x 0.3 cm. The largest fragment is inked and bisected. They are entirely submitted in F1. (SDY; 03/12/2018) SYU/SYU . 02 Pathologist provided ICD-10: D12.0, K29.50, K31.89, K31.9, K31.7, K20.8 . 02 CPT . 646961, 673188, 308356, 396634, 670013, 449441, [id number] Specimen Comment: A courtesy copy of this report has been sent to Specimen Comment: [phone]. Specimen Comment: Report sent to Specimen Comment: A duplicate report has been generated due to demographic updates. Performed at: 01 [facility] [address] [id number] MD Maninder Muñoz MD Phone: [phone] Performed at: 02 [facility] [address] [place], [place] [id number] MD Simone Hutson MD Phone: [phone]
== END 2018-03-12 10:20 | disposition home or self-care (01) ==
LOC: SURG 13:47 → CVICU 17:00
PROVIDERS: ADMIT Internal Medicine; ATTEND Internal Medicine
DX: R07.89 Other chest pain (principal); I25.10 Atherosclerotic heart disease of native coronary artery without angina pectoris; I10 Essential (primary) hypertension; E78.5 Hyperlipidemia, unspecified; Z85.528 Personal history of other malignant neoplasm of kidney; Z98.890 Other specified postprocedural states; Z82.49 Family history of ischemic heart disease and other diseases of the circulatory system; Z95.5 Presence of coronary angioplasty implant and graft; G40.909 Epilepsy, unspecified, not intractable, without status epilepticus; Z90.5 Acquired absence of kidney; Z83.3 Family history of diabetes mellitus; Z86.010 Personal history of colon polyps; D12.0 Benign neoplasm of cecum; K64.0 First degree hemorrhoids
CPT/HCPCS: 36415; 43239; 45380; 80048; 80061; 80076; 84484; 85007; 85025; 88305; 88342; 93005; 94760; G0378; G0379; J2704

== ENCOUNTER → 2018-09-03 | Outpatient (CLI) | payer BC ==
[~2018-09-03] MED LIST: ALBU2.5V8 INH; ASPI-630 PO; CARB100O7 PO; CARB200T PO; CYCL10TA2 PO; FAMO40TA4 PO; HYDR-2761 PO; LOSA100T14 PO; PRAV80TA2 PO; PSYL1CAP4 PO
[2018-09-03 12:44] LABS: FREE T4 0.66 ng/dL (0.76-1.46); THYROID STIM HORMONE (TSH) 0.755 uIU/mL (0.358-3.74)
--- NOTE | 2018-09-03 15:19 | RAD ---
Ultrasound-guided left thyroid biopsy, 09/03/2018: History: Thyroid nodule Outside imaging demonstrated a suspicious solid nodule in the lower pole of left lobe of the gland. Under local anesthesia, aseptic conditions and utilizing an anteromedial approach four 25-gauge aspirates were obtained from different portions of this nodule. The materials were sent to pathology for evaluation. Hemostasis was then obtained. The patient toward the procedure well and left the department in good condition. The pathology results are pending.
[2018-09-03 18:09] LABS: THYROXINE 5.4 ug/dL (4.5-12.0)
--- NOTE | 2018-09-08 11:08 | PATHOLOGY ---
Note [facility] Accession Number: [id number] TESTS RESULT FLAG UNITS REF RANGE LAB Clinician Provided Cytology Information No. of containers..01 Other (Miscellaneous) Source: LT THYROID DIAGNOSIS: LT THYROID NEGATIVE FOR MALIGNANT CELLS. BETHESDA CATEGORY II. SPECIMEN CONSISTS OF ABUNDANT BENIGN FOLLICULAR CELLS, HEMOSIDERIN-LADEN MACROPHAGES, SCANT COLLOID AND BLOOD. THE PATTERN IS CONSISTENT WITH ADENOMATOID NODULE. THIS INTERPRETATION INCLUDES EVALUATION OF A CELL BLOCK. Pathologist ICD10: 02 E04.1 Signed out by: Simone Hutson MD, Pathologist NPI- [id number] Performed by: Constantino Valverde, Viticulturist ([facility]) Gross description: 01 30ML, PINK, CLOUDY /LCS FLAG LEGEND: L-Low Normal,H-High Normal,LL-Alert Low,HH-Alert High <-Panic Low,>-Panic High,A-Abnormal,AA-Critical Abnormal Performed at: [facility] [address] [facility] [address] [place] [address] Maninder Muñoz MD, 02 [facility] [address] [place] [address] Simone Hutson MD, Specimen Comment: A courtesy copy of this report has been sent to Specimen Comment: [phone]. Specimen Comment: Report sent to Specimen Comment: A duplicate report has been generated due to demographic updates. Performed at: 01 [facility] [address] [facility] [address], [place], [place] [id number] MD Maninder Muñoz MD Phone: [phone]
== END | disposition home or self-care (01) ==
LOC: US 13:53
PROVIDERS: ATTEND Surgery
DX: E04.1 Nontoxic single thyroid nodule (principal)
CPT/HCPCS: 10005; 36415; 76942; 84436; 84439; 84443; 84480; 84481; 88173; 88305

== ENCOUNTER → 2019-11-28 | Outpatient (CLI) | payer BC ==
[2019-11-28 13:47] LABS: BASO # 0.3 x10^3/uL (0.0-0.2); BASO % 1 % (0-3); EOS # 0.3 x10^3/uL (0.0-0.7); EOS % 1 % (0-3); HEMATOCRIT 45.2 % (39.0-53.0); HEMOGLOBIN 15.1 g/dL (13.0-17.5); LYMPH # 43.5 x10^3/uL (1.0-4.8); LYMPH % 86 % (24-48); MEAN CORPUSCULAR HEMOGLOBIN 32 pg (25-35); MEAN CORPUSCULAR HGB CONC 33 g/dL (31-37); MEAN CORPUSCULAR VOLUME 95 fL (79-100); MONO % 2 % (0-9); NEUT # 5.6 x10^3/uL (1.8-7.7); NEUT % 11 % (31-73); PLATELET COUNT 147 x10^3/uL (140-400); RED BLOOD COUNT 4.74 x10^6/uL (4.30-5.70); RED CELL DISTRIBUTION WIDTH 14.2 % (11.5-14.5)
[2019-11-28 14:07] LABS: WHITE BLOOD COUNT 50.7 x10^3/uL (4.0-11.0)
[2019-11-28 14:35] LABS: % BANDS 1 % (0-9); % EOS 1 % (0-5); % LYMPHS 85 % (24-48); % MONOS 1 % (0-10); % SEGS 12 % (35-66)
[2019-11-28 14:36] LABS: PLT ESTIMATE ADEQUATE (ADEQUATE); SMUDGE CELLS PRESENT
== END | disposition home or self-care (01) ==
LOC: ONCLAB 13:34
PROVIDERS: ATTEND Internal Medicine Hematology & Oncology
DX: C91.10 Chronic lymphocytic leukemia of B-cell type not having achieved remission (principal)
CPT/HCPCS: 36415; 85007; 85025

== ENCOUNTER → 2020-06-04 | Outpatient (CLI) | payer BC ==
[2020-06-04 13:35] LABS: BASO # 0.1 x10^3/uL (0.0-0.2); BASO % 0 % (0-3); EOS # 0.2 x10^3/uL (0.0-0.7); EOS % 1 % (0-3); HEMATOCRIT 44.6 % (39.0-53.0); HEMOGLOBIN 14.8 g/dL (13.0-17.5); LYMPH # 40.6 x10^3/uL (1.0-4.8); LYMPH % 85 % (24-48); MEAN CORPUSCULAR HEMOGLOBIN 31 pg (25-35); MEAN CORPUSCULAR HGB CONC 33 g/dL (31-37); MEAN CORPUSCULAR VOLUME 94 fL (79-100); MONO # 0.8 x10^3/uL (0.0-1.1); MONO % 2 % (0-9); NEUT % 13 % (31-73); PLATELET COUNT 141 x10^3/uL (140-400); RED BLOOD COUNT 4.73 x10^6/uL (4.30-5.70); RED CELL DISTRIBUTION WIDTH 13.9 % (11.5-14.5)
[2020-06-04 13:49] LABS: WHITE BLOOD COUNT 47.7 x10^3/uL (4.0-11.0)
[2020-06-04 15:06] LABS: % BANDS 1 % (0-9); % EOS 1 % (0-5); % LYMPHS 91 % (24-48); % MONOS 1 % (0-10); % SEGS 6 % (35-66)
[2020-06-04 15:07] LABS: PLT ESTIMATE ADEQUATE (ADEQUATE); SMUDGE CELLS PRESENT
== END ==
LOC: ONCLAB 12:59
PROVIDERS: ATTEND Internal Medicine Hematology & Oncology
DX: C91.10 Chronic lymphocytic leukemia of B-cell type not having achieved remission (principal)
CPT/HCPCS: 36415; 85007; 85025

== ENCOUNTER → 2020-10-08 | Outpatient (CLI) | payer BC ==
[2020-10-08 15:09] LABS: BASO # 0.1 x10^3/uL (0.0-0.2); BASO % 0 % (0-3); EOS # 0.2 x10^3/uL (0.0-0.7); EOS % 1 % (0-3); HEMATOCRIT 42.1 % (39.0-53.0); HEMOGLOBIN 13.6 g/dL (13.0-17.5); LYMPH # 37.5 x10^3/uL (1.0-4.8); LYMPH % 87 % (24-48); MEAN CORPUSCULAR HEMOGLOBIN 31 pg (25-35); MEAN CORPUSCULAR HGB CONC 32 g/dL (31-37); MEAN CORPUSCULAR VOLUME 96 fL (79-100); MONO # 0.9 x10^3/uL (0.0-1.1); MONO % 2 % (0-9); NEUT # 4.5 x10^3/uL (1.8-7.7); NEUT % 10 % (31-73); PLATELET COUNT 138 x10^3/uL (140-400); RED BLOOD COUNT 4.39 x10^6/uL (4.30-5.70); RED CELL DISTRIBUTION WIDTH 14.8 % (11.5-14.5)
[2020-10-08 15:16] LABS: WHITE BLOOD COUNT 43.1 x10^3/uL (4.0-11.0)
[2020-10-08 15:20] LABS: CALCIUM 8.5 mg/dL (8.5-10.1); CREATININE 1.3 mg/dL (0.7-1.3); GFR 55.8; POTASSIUM 4.7 mmol/L (3.5-5.1)
[2020-10-08 15:26] LABS: ALBUMIN/GLOBULIN RATIO 1.5 (1.0-1.7); TOTAL BILIRUBIN 0.3 mg/dL (0.2-1.0); TOTAL PROTEIN 6.7 g/dL (6.4-8.2)
[2020-10-08 16:53] LABS: % LYMPHS 90 % (24-48); % SEGS 10 % (35-66)
[2020-10-08 16:54] LABS: PLT ESTIMATE DECREASED (ADEQUATE)
== END ==
LOC: ONCLAB 14:40
PROVIDERS: ATTEND Internal Medicine Hematology & Oncology
DX: C91.10 Chronic lymphocytic leukemia of B-cell type not having achieved remission (principal)
CPT/HCPCS: 36415; 80053; 85007; 85025

== ENCOUNTER → 2021-04-09 | Outpatient (CLI) | payer BC ==
[~2021-04-09] MED LIST changes: +CYCL10TA19 PO; -CYCL10TA2 PO
[2021-04-09 15:25] LABS: BASO # 0.1 x10^3/uL (0.0-0.2); BASO % 0 % (0-3); EOS # 0.3 x10^3/uL (0.0-0.7); EOS % 1 % (0-3); HEMATOCRIT 42.3 % (39.0-53.0); HEMOGLOBIN 13.8 g/dL (13.0-17.5); LYMPH # 39.5 x10^3/uL (1.0-4.8); LYMPH % 88 % (24-48); MEAN CORPUSCULAR HEMOGLOBIN 31 pg (25-35); MEAN CORPUSCULAR HGB CONC 33 g/dL (31-37); MEAN CORPUSCULAR VOLUME 96 fL (79-100); MONO # 0.8 x10^3/uL (0.0-1.1); MONO % 2 % (0-9); NEUT # 4.1 x10^3/uL (1.8-7.7); NEUT % 9 % (31-73); PLATELET COUNT 128 x10^3/uL (140-400); RED BLOOD COUNT 4.42 x10^6/uL (4.30-5.70); RED CELL DISTRIBUTION WIDTH 13.9 % (11.5-14.5)
[2021-04-09 15:29] LABS: WHITE BLOOD COUNT 44.8 x10^3/uL (4.0-11.0)
[2021-04-09 15:34] LABS: CALCIUM 8.2 mg/dL (8.5-10.1); CREATININE 1.2 mg/dL (0.7-1.3); POTASSIUM 4.1 mmol/L (3.5-5.1)
[2021-04-09 15:39] LABS: ALBUMIN 3.4 g/dL (3.4-5.0); ALBUMIN/GLOBULIN RATIO 1.1 (1.0-1.7); TOTAL BILIRUBIN 0.3 mg/dL (0.2-1.0); TOTAL PROTEIN 6.5 g/dL (6.4-8.2)
[2021-04-09 15:59] LABS: % LYMPHS 89 % (24-48); % MONOS 1 % (0-10); % SEGS 10 % (35-66); PLT ESTIMATE DECREASED (ADEQUATE); SMUDGE CELLS PRESENT
== END ==
LOC: ONCLAB 15:00
PROVIDERS: ATTEND Internal Medicine Hematology & Oncology
DX: C91.10 Chronic lymphocytic leukemia of B-cell type not having achieved remission (principal)
CPT/HCPCS: 36415; 80053; 85007; 85025

== ENCOUNTER → 2021-07-08 | Outpatient (CLI) | payer BC ==
[2021-07-08 15:05] LABS: CALCIUM 8.8 mg/dL (8.5-10.1); CREATININE 1.4 mg/dL (0.7-1.3); POTASSIUM 4.6 mmol/L (3.5-5.1)
[2021-07-08 15:12] LABS: ALBUMIN 4.1 g/dL (3.4-5.0); ALBUMIN/GLOBULIN RATIO 1.5 (1.0-1.7); BASO % 0 % (0-3); EOS # 0.1 x10^3/uL (0.0-0.7); EOS % 0 % (0-3); HEMATOCRIT 45.9 % (39.0-53.0); HEMOGLOBIN 14.7 g/dL (13.0-17.5); LYMPH # 43.8 x10^3/uL (1.0-4.8); LYMPH % 81 % (24-48); MEAN CORPUSCULAR HEMOGLOBIN 31 pg (25-35); MEAN CORPUSCULAR HGB CONC 32 g/dL (31-37); MEAN CORPUSCULAR VOLUME 95 fL (79-100); MONO # 2.1 x10^3/uL (0.0-1.1); MONO % 4 % (0-9); NEUT % 15 % (31-73); PLATELET COUNT 139 x10^3/uL (140-400); RED BLOOD COUNT 4.82 x10^6/uL (4.30-5.70); RED CELL DISTRIBUTION WIDTH 13.7 % (11.5-14.5); TOTAL BILIRUBIN 0.3 mg/dL (0.2-1.0); TOTAL PROTEIN 6.9 g/dL (6.4-8.2)
[2021-07-08 17:36] LABS: % LYMPHS 90 % (24-48); % MONOS 2 % (0-10); % SEGS 8 % (35-66)
[2021-07-08 17:38] LABS: PLT ESTIMATE ADEQUATE (ADEQUATE)
== END ==
LOC: ONCLAB 14:28
PROVIDERS: ATTEND Internal Medicine Hematology & Oncology
DX: C91.10 Chronic lymphocytic leukemia of B-cell type not having achieved remission (principal)
CPT/HCPCS: 36415; 80053; 85007; 85025